=== PATIENT | male | born 1970 | race African-American/Black ===

== ENCOUNTER → 2018-10-28 | Outpatient (REF) | payer OTHER ==
[2018-10-28 21:43] LABS: HEMATOCRIT 41.5 % (39.0-50.0); IMMATURE GRANULOCYTES 0.2 % (0.0-5.0); MEAN CORPUSCULAR HGB 28.2 pG CALC (26.0-32.0); MEAN CORPUSCULAR HGB CONC 31.3 g/L CALC (32.0-36.0); NEUT# 2.38 thou/uL (1.82-7.42); RED BLOOD COUNT 4.61 mill/uL (4.70-6.10); RED CELL DISTRI WIDTH 12.6 % (11.5-15.5)
[2018-10-28 21:52] LABS: URINE BILIRUBIN - DIPSTICK NEGATIVE (NEGATIVE); URINE BLOOD DIPSTICK NEGATIVE (NEGATIVE); URINE COLOR YELLOW; URINE GLUCOSE - DIPSTICK NEGATIVE (NEGATIVE); URINE KETONE 40 mg/dL (NEGATIVE); URINE LEUK ESTERASE NEGATIVE (NEGATIVE); URINE NITRITE - DIPSTICK NEGATIVE (Negative); URINE PROTEIN - DIPSTICK 30 mg/dL (NEG-TRACE); URINE SPECIFIC GRAVITY >=1.030; URINE UROBILINOGEN - DIPSTICK 0.2 E.U./dL (0.2)
[2018-10-28 21:56] LABS: BARBITURATES NEGATIVE (NEGATIVE); COCAINE NEGATIVE (NEGATIVE); METHADONE NEGATIVE (NEGATIVE); OXCYCODONE NEGATIVE (NEGATIVE); TETRAHYDROCANNABIONOL NEGATIVE (NEGATIVE); TRICYLIC ANTIDEPRESSANTS NEGATIVE (NEGATIVE)
[2018-10-28 22:00] LABS: URINE RBC 0-2 RBC/hpf (0-5); URINE WBC 0-2 WBC/hpf (0-5)
[2018-10-28 22:07] LABS: ALBUMIN 4.8 g/dL (3.2-5.0); ALKALINE PHOSPHATASE 92 u/l (38-126); ANION GAP 17 (6-22 (CALC)); BILIRUBIN, TOTAL 0.6 mg/dL (0.0-1.4); BUN 16 mg/dL (9-20); BUN/CREATININE RATIO 20 (12-20 (CALC)); CARBON DIOXIDE 27 mmol/l (22-30); CHLORIDE 98 mmol/l (95-108); CREATININE 0.8 mg/dL (0.7-1.3); GFR > 60 ML/MIN (>=60 (CALC)); GFR FOR AFR.AMER. > 60 ML/MIN (>=60 (CALC)); POTASSIUM 4.3 mmol/l (3.5-5.1); SGOT/AST 49 u/l (17-59); SODIUM 137 mmol/l (137-146); TOTAL PROTEIN 8.1 g/dL (6.3-8.2)
== END | disposition home or self-care (01) | DRG 948 ==
LOC: LABSPEC 21:27
PROVIDERS: ATTEND Internal Medicine
DX: R41.0 Disorientation, unspecified (principal); Z02.83 Encounter for blood-alcohol and blood-drug test

== ENCOUNTER 2022-05-29 06:15 | Day surgery (SDC) | payer OTHER ==
[~2022-05-29] VITALS: Ht 185.4 cm; Wt 103.0 kg
[~2022-05-29 06:15] MED LIST: ACETAMINOPHEN325 MG PO; BANOPHEN50 MG PO; CHEWABLE CALCI500 MG PO; DIVALPROEX SOD250 MG PO; LEXAPRO20 MG PO; LORATADINE10 M1 PO; MELOXICAM7.5 MG PO; METAMUCIL28.3 % PO; MOTRIN800 MG PO; OMEPRAZOLE20 MG PO; TYLENOL500 MG PO; [UNRECOGNIZED DRUG - OTHER] PO; [UNRECOGNIZED DRUG - OTHER] RE
[2022-05-29 11:42] VITALS: BP 137/91
== END 2022-05-29 12:10 | disposition designated cancer center or children's hospital (05) | DRG 470 ==
LOC: ORM 06:15
PROVIDERS: ATTEND Orthopaedic Surgery
PROC: 0SRD0JA Replacement of Left Knee Joint with Synthetic Substitute, Uncemented, Open Approach (ICD-10-PCS; principal; 2022-05-29)
PROC: 3E0T3BZ Introduction of Anesthetic Agent into Peripheral Nerves and Plexi, Percutaneous Approach (ICD-10-PCS; 2022-05-29)
DX: M17.12 Unilateral primary osteoarthritis, left knee (principal)
CPT/HCPCS: J0131

== ENCOUNTER 2023-01-04 09:10 | Day surgery (SDC) | payer OTHER ==
[~2023-01-04] VITALS: Ht 185.4 cm; Wt 107.5 kg
[~2023-01-04 09:10] MED LIST changes: +CALCI-CHE1 PO; +MIRALAX17 GM; +NORVASC PO; +RISPERDAL4 MG PO; +[UNRECOGNIZED DRUG - OTHER] TOP
[2023-01-04 11:30] VITALS: BP 93/65
== END 2023-01-04 11:55 | DRG 379 ==
LOC: ENDO 09:10
PROVIDERS: ATTEND Surgery
PROC: 0DJD8ZZ Inspection of Lower Intestinal Tract, Via Natural or Artificial Opening Endoscopic (ICD-10-PCS; principal; 2023-01-04)
DX: K57.31 Diverticulosis of large intestine without perforation or abscess with bleeding (principal); K64.8 Other hemorrhoids; I10 Essential (primary) hypertension; Z80.42 Family history of malignant neoplasm of prostate